=== PATIENT | male | born 1990 | race Caucasian/White ===

== ENCOUNTER 2022-08-29 20:45 | Emergency (ER) | payer OTHER, SELFPAY ==
[2022-08-29 20:49] VITALS: BP 140/90; PULSE 88; RESP 20; TEMP 36.2; O2SAT 96
--- NOTE | 2022-08-29 20:51 | ED.URI ---
HPI - URI/Sore Throat General Chief Complaint: Upper Respiratory Infection Stated Complaint: Sore Throat History of Present Illness HPI Narrative: This is a 31-year-old male with no significant past medical history, presenting to the emergency department complaining of mild sore throat for the past day. He denies difficulty breathing, fevers or chills. Related Data Home Medications Medication Instructions Recorded Confirmed No Home Medications 08/29/22 08/29/22 Allergies Allergy/AdvReac Type Severity Reaction Status Date / Time No Known Allergies Allergy Verified 08/29/22 20:47 Review of Systems Review of Systems: CONSTITUTIONAL: Denies fever, chills, or sweats. ENT: Sore throat denies rhinorrhea, congestion, or otalgia. CARDIOVASCULAR: Denies chest pain, palpitations, or edema. RESPIRATORY: Denies cough or dyspnea. GASTROINTESTINAL: Denies abdominal pain, nausea, vomiting, or diarrhea. NEUROLOGIC: Denies headache, numbness, dizziness, or weakness. PMFSH Social History Social History (Updated 08/29/22 @ 20:53 by Kt Villareal MD) Smoking status: Never smoker Alcohol intake: never Substance use: never Exam Narrative: GENERAL: Well-developed, well-nourished, and in no acute distress. HEAD: Normocephalic, atraumatic. EYES: PERRLA and EOMI. ENT: Nares clear, no rhinorrhea or epistaxis. Mucous membranes moist. Oropharynx with mild bilateral tonsillar erythema, without hypertrophy exudate or other lesions. NECK: Supple. Mild tender right anterior cervical adenopathy. No masses. No carotid bruits or JVD CHEST: Clear to auscultation. No respiratory distress. No wheezes rales or rhonchi HEART: Regular rate and rhythm. No murmur heard. Normal peripheral pulses. ABDOMEN: Soft, nontender, nondistended, normal active bowel sounds. EXTREMITIES: Normal range of motion. No edema. SKIN: Warm, dry, no rash. NEURO: No focal deficits. Alert and oriented x3. PSYCH: Normal mood and affect. Course Course Emergency Course: 21:37 - The patient tested negative for group A strep. Discussed management at home with NSAIDs and home therapies. Discussed return and emergency precautions including signs/symptoms of airway compromise patient voiced understanding and is comfortable with the plan. All questions answered to his satisfaction Vital Signs Vital signs: Vital Signs Temperature 97.1 F L 08/29/22 20:49 Pulse Rate 88 08/29/22 20:49 Respiratory Rate 20 08/29/22 20:49 Blood Pressure 140/90 08/29/22 20:49 Pulse Oximetry 96 08/29/22 20:49 Oxygen Delivery Room Air 08/29/22 20:49 Temperature 99 F 08/29/22 21:42 Pulse Rate 88 08/29/22 21:42 Respiratory Rate 20 08/29/22 21:42 Blood Pressure 140/89 08/29/22 21:42 Pulse Oximetry 100 08/29/22 21:42 Oxygen Delivery Room Air 08/29/22 21:42 MDM - URI/Sore Throat MDM Narrative Medical decision making narrative: Plan: Labs, reassess Differential Diagnosis Differential diagnosis: Likely upper respiratory infection, viral infection, pharyngitis and other Lab Data Labs: Lab Results 08/29/22 Range/Units 20:57 Group A Strep (PCR) Not detected (Negative) Discharge Plan Discharge Clinical Impression: Acute sore throat, Acute viral pharyngitis Patient Disposition: Home, Self-Care Condition: Stable Instructions: Antibiotic Form, Pharyngitis (ED) Additional Instructions: You were seen in the emergency department. You tested negative for strep. If you develop difficulty swallowing, difficulty breathing, or have other emergent concerns for life, limb, or eyesight, return to the emergency department. Prescriptions: No Action No Home Medications Follow-up/Referrals: UNKNOWN,DOCTOR [Primary Care Provider] - 2 Weeks Time of Disposition: 21:39
[2022-08-29 21:33] LABS: Strep Group A RT-PCR NOT DETECTED (Negative)
[2022-08-29 21:42] VITALS: BP 140/89; PULSE 88; RESP 20; TEMP 37.2; O2SAT 100
== END 2022-08-29 21:43 | disposition home or self-care (01) ==
PROVIDERS: Emergency Provider Preventive Medicine Aerospace Medicine
DX: J02.8 Acute pharyngitis due to other specified organisms (principal)
CPT/HCPCS: 87651; 99283

== ENCOUNTER 2022-08-31 17:39 | Emergency (ER) | payer OTHER, SELFPAY ==
[2022-08-31 17:49] VITALS: BP 157/87; PULSE 67; RESP 16; TEMP 36.2; O2SAT 97
--- NOTE | 2022-08-31 17:56 | ED.URI ---
HPI - URI/Sore Throat General Chief Complaint: Upper Respiratory Infection Stated Complaint: Sore Throat Time Seen by Provider: 08/31/22 18:00 Source: patient and RN notes reviewed Mode of arrival: ambulatory Limitations: no limitations History of Present Illness HPI Narrative: 31-year-old male presents with concern for 4 day history of sore throat, ear pain, general malaise. Denies known sick contacts. He has not taken any medications for his symptoms. MD elicited complaint: sore throat Related Data Allergies Allergy/AdvReac Type Severity Reaction Status Date / Time No Known Allergies Allergy Verified 08/31/22 18:06 Review of Systems Review of Systems: CONSTITUTIONAL: Reports malaise. Denies chills, sweats, or fever. EYES: Denies visual changes, redness, or discharge. ENT: Denies rhinorrhea, congestion, sinus pain. Reports otalgia and sore throat. CARDIOVASCULAR: Denies chest pain, palpitations, or edema. RESPIRATORY: Denies cough. Denies dyspnea. GASTROINTESTINAL: Denies abdominal pain, nausea, vomiting, diarrhea SKIN: Denies rash or itching. MUSCULOSKELETAL: Denies myalgia. NEUROLOGIC: Denies headache. All systems reviewed & are unremarkable except as noted in HPI and below PMFSH Social History Social History (Updated 08/29/22 @ 20:53 by Kt Villareal MD) Smoking status: Never smoker Alcohol intake: never Substance use: never Comments At time of signature, agree with nursing past medical, surgical, social and family history. There is no relevant family history pertinent to the presenting complaint Exam Narrative: GENERAL: Well-appearing, well-nourished, and in no acute distress. HEAD: Normocephalic EYES: PERRLA, conjunctivae clear ENT: Nares clear, no discharge. Mucous membranes moist. TM pearly beverly with dull light reflex bilaterally; no tragal tenderness. Oropharynx erythematous without lesions. Tonsils not enlarged and without exudate, no drooling, no hoarseness, no trismus, uvula midline. NECK: Supple. No lymphadenopathy CHEST: Clear to auscultation, breath sounds equal. No wheezing, rhonchi, rales, or stridor. No respiratory distress, speaks in full sentences. HEART: Regular rate and rhythm. No murmur heard. SKIN: Warm, dry, no rash. NEURO: Alert and oriented x3. PSYCH: Normal mood and affect Course Course Emergency Course: Patient is aware of diagnosis, understands and agrees to treatment plan. Anticipatory guidance given. Patient agrees to follow-up as directed and is aware of reasons to seek care at the emergency department. Portions of this record may have been created with voice recognition software Level of Care: Express Care Visit Vital Signs Vital signs: Vital Signs Temperature 97.2 F L 08/31/22 17:49 Pulse Rate 67 08/31/22 17:49 Respiratory Rate 16 08/31/22 17:49 Blood Pressure 157/87 H 08/31/22 17:49 Pulse Oximetry 97 08/31/22 17:49 Oxygen Delivery Room Air 08/31/22 17:49 Temperature 97.2 F L 08/31/22 17:49 Pulse Rate 67 08/31/22 17:49 Respiratory Rate 16 08/31/22 17:49 Blood Pressure 157/87 H 08/31/22 17:49 Pulse Oximetry 97 08/31/22 17:49 Oxygen Delivery Room Air 08/31/22 17:49 Reviewed. MDM - URI/Sore Throat MDM Narrative Medical decision making narrative: Differential diagnosis considered: Byrd virus, strep pharyngitis, allergic rhinitis, upper respiratory tract infection, sinusitis, rhinosinusitis, nasopharyngitis. viral pharyngitis, otitis media, otitis externa, pneumonia, bronchitis, viral cough syndrome, viral syndrome, and influenza. Exam findings show no acute concerns or changes; patient is non-toxic appearing and is in no distress. Patient is appropriate for outpatient treatment and follow-up. Lab Data Attestation: I reviewed the patient's lab results. Critical Care Time Critical Care Time Critical Care Time: No Discharge Plan Discharge Clinical Impression: Acute viral pharyngitis Patient Disposit
== END 2022-08-31 18:35 | disposition home or self-care (01) ==
PROVIDERS: Emergency Provider Nurse Practitioner; PCP Nurse Practitioner Family
DX: J02.9 Acute pharyngitis, unspecified (principal)
CPT/HCPCS: 87081; 87880; 99213; G0463

== ENCOUNTER 2023-09-13 08:16 | Emergency (ER) | payer OTHER, SELFPAY ==
[2023-09-13 08:25] VITALS: BP 153/88; PULSE 64; RESP 16; TEMP 36.6; O2SAT 99
--- NOTE | 2023-09-13 08:28 | ED.GENADULT ---
HPI - General Adult General Chief complaint: Upper Respiratory Infection Stated complaint: Congestion/Ear Pain Source: patient, RN notes reviewed and old records reviewed Mode of arrival: ambulatory Limitations: no limitations History of Present Illness HPI narrative: 32-year-old male patient presents to [facility] with complaints productive cough, sinus congestion, fatigue this started Sunday. Patient taking [id number] medications with little relief. Patient denies fever, myalgia, sore throat, nausea vomiting, chest pain, shortness of breath. Related Data Allergies Allergy/AdvReac Type Severity Reaction Status Date / Time No Known Allergies Allergy Verified 08/31/22 18:06 Review of Systems Constitutional: Constitutional: Reports no additional constitutional complaints, Denies body ache(s), Denies chills, Reports fatigue, Denies fever(s) and Denies headache(s) Eyes: Eyes: Reports no additional eye complaints and Denies blurry vision ENT: Reports system reviewed and no additional complaints, except as documented, Denies vertigo, Denies dizziness, Denies ear discharge, Denies otalgia, Denies facial pain, Denies headache(s), Reports nasal congestion, Reports nasal discharge, Denies sinus pain, Reports sinus pressure and Denies sore throat Cardiovascular: Cardiovascular: Reports no additional cardiovascular complaints, Denies chest pain, Denies chest pain at rest, Denies rapid heart rate and Denies dyspnea Respiratory: Respiratory: Reports no additional respiratory complaints, Reports chest congestion, Reports cough, Denies pain on inspiration, Denies pain with cough and Denies dyspnea Gastrointestinal: Gastrointestinal: Denies abdominal pain, Denies diarrhea, Denies nausea and Denies vomiting Integumentary/Breasts: Skin/Breast: Denies rash Neurologic: Reports system reviewed and no additional complaints, except as documented, Denies vertigo, Denies dizziness and Denies headache(s) Endocrine: Endocrine: Denies fatigue PMFSH Social History Social History Smoking status: Never smoker Alcohol intake: never Substance use: never Comments At the time of my signature, I reviewed and agree with the nursing past medical, surgical, social, and family history. There is no relevant family history pertinent to the patient complaint. Exam Const: General: cooperative, healthy appearing, no acute distress and well nourished Nutritional Appearance: well nourished Orientation/consciousness: patient oriented x3 Limitations: no limitations HENMT: Head: normal to inspection and normocephalic Ears: external ears normal, EAC's normal, mastoids normal and TM abnormal wth effusion serous Face/Nose/Sinus: Normal nasal mucous membranes and turbinates present and normal facial exam Face and sinus: normal facial exam, sinuses nontender, no erythema and no edema Mouth: Yes Normal oral and palatal mucosa present, Yes oropharynx normal and Yes moist mucous membranes Throat: posterior oropharynx normal, tonsils normal, uvula midline and no uvular edema Eyes: General: appearance normal, both eyes and all related structures Sclera: sclerae normal Pupils: Equal, round and reactive pupils present Resp: Effort & Inspection: normal respiratory effort, able to speak in complete sentences, no audible wheezes, no cough, no respiratory distress and no retractions Auscultation: clear to auscultation bilaterally, no crackles, no rales, no rhonchi and no wheezes Cardio: Rate: regular rate Rhythm: regular rhythm Skin: General skin exam: normal color and no rashes or lesions noted Neuro: General: patient oriented x3 Cranial nerves: Yes Equal, round and reactive pupils present Psych: Appearance: grossly normal Mental Status: mental status grossly normal Speech and movement: Normal speech and movement present Affect: normal affect Course Course Emergency Course: Patient is aware of di
== END 2023-09-13 08:45 | disposition home or self-care (01) ==
PROVIDERS: Emergency Provider Registered Nurse; PCP Nurse Practitioner Family
DX: J06.9 Acute upper respiratory infection, unspecified (principal)
CPT/HCPCS: 99213; G0463

== ENCOUNTER 2024-07-16 08:22 | Emergency (ER) | payer OTHER, SELFPAY ==
[2024-07-16 08:26] VITALS: BP 151/89; PULSE 60; RESP 16; TEMP 36.4; O2SAT 98
--- NOTE | 2024-07-16 08:58 | ED.EAR ---
HPI - Ear Problem General Chief complaint: Ear Stated complaint: Ear Pain Source: patient Mode of arrival: ambulatory Limitations: no limitations History of Present Illness HPI Narrative: Patient presents for evaluation of right ear pain. Symptom onset this morning. He has mild muffled hearing on the right side. Denies any tinnitus or drainage from the ear. No fever, chills, nausea, vomiting, sore throat, cough, shortness of breath. No recent sick contacts to his knowledge. He is not taking any medication to assist with the symptoms. He does not smoke. Related Data Allergies Allergy/AdvReac Type Severity Reaction Status Date / Time No Known Allergies Allergy Verified 07/16/24 08:45 Review of Systems Review of Systems: CONSTITUTIONAL: Denies fever, chills, or sweats. EYES: Denies visual changes, redness, or discharge. ENT: Reports right ear pain. Denies rhinorrhea, congestion, or sore throat CARDIOVASCULAR: Denies chest pain, palpitations, or edema. RESPIRATORY: Denies cough or dyspnea. GASTROINTESTINAL: Denies abdominal pain, nausea, vomiting, or diarrhea. GENITOURINARY: Denies dysuria or hematuria. SKIN: Denies rash or itching. MUSCULOSKELETAL: Denies back pain, joint pain, or myalgia. NEUROLOGIC: Denies headache, numbness, dizziness, or weakness. PSYCHIATRIC: Denies anxiety or depression. [facility] Past Medical History Medical History No pertinent past medical history Surgical History Surgical History No pertinent past surgical history Family History Family History Mother Family history non-contributory Social History Social History Smoking status: Never smoker Alcohol intake: never Substance use: never Living arrangements: with family Gender identity (if verbalized by the patient): Male Exam Narrative: GENERAL: Well-appearing, well-nourished, and in no acute distress. HEAD: Normocephalic, atraumatic. EYES: PERRLA and EOMI. ENT: Nares clear, no rhinorrhea or epistaxis. Mucous membranes moist. Oropharynx without tonsillar hypertrophy exudate or other lesions. Right TM is erythematous and bulging NECK: Supple. No adenopathy or masses. No carotid bruits or JVD CHEST: Clear to auscultation. No respiratory distress. No wheezes rales or rhonchi HEART: Regular rate and rhythm. No murmur heard. Normal peripheral pulses. ABDOMEN: Soft, nontender, nondistended, normal active bowel sounds. EXTREMITIES: Normal range of motion. No edema. SKIN: Warm, dry, no rash. NEURO: No focal deficits. Alert and oriented x3. PSYCH: Normal mood and affect. Course Course Emergency Course: This is a 33-year-old male who presented for evaluation of right-sided ear pain. He has evidence of otitis media on exam. Will tx with augmentin. Ibuprofen for pain. Follow up with primary provider. Go to the ER for worsening symptoms. Pt in agreement with plan of care. Level of Care: Express Care Visit Vital Signs Vital signs: Vital Signs Temperature 36.4 C 07/16/24 08:26 Pulse Rate 60 07/16/24 08:26 Respiratory Rate 16 07/16/24 08:26 Blood Pressure 151/89 H 07/16/24 08:26 Pulse Oximetry 98 07/16/24 08:26 Oxygen Delivery Room Air 07/16/24 08:26 Temperature 36.4 C 07/16/24 08:26 Pulse Rate 60 07/16/24 08:26 Respiratory Rate 16 07/16/24 08:26 Blood Pressure 151/89 H 07/16/24 08:26 Pulse Oximetry 98 07/16/24 08:26 Oxygen Delivery Room Air 07/16/24 08:26 Medical Decision Making Vital Signs Vital Signs: Vital Signs Temperature 36.4 C 07/16/24 08:26 Pulse Rate 60 07/16/24 08:26 Respiratory Rate 16 07/16/24 08:26 Blood Pressure 151/89 H 07/16/24 08:26 Pulse Oximetry 98 07/16/24 08:26 Oxygen Delivery Room Air 07/16/24 08:26 Temperature 36.4 C 07/16/24 08:26 Pulse Rate 60 07/16/24 08:26 Respiratory Rate 16 07/16/24 08:26 Blood Pressure 151/89 H 07/16/24 08:26 Pulse Oximetry 98 07/16/24 08:26 Oxygen Delivery Room Air 07/16/24 08:26 Discharge Plan Discharge Clinical Impression: Otitis media Patient Disposition: Home, Self-Care Condition: Stable Instructions: Antibiotic Form, Ear Infection (ED) Patient Language: Marshallese Prescriptions: New amoxicillin-pot clavulanate 875-125 mg tablet 1 tablet PO Q12H Qty: 20 0RF Follow-up/Referrals: [place],Jenise Multani APN [Primary Care Provider] - Time of Disposition: 08:57
== END 2024-07-16 09:00 | disposition home or self-care (01) ==
PROVIDERS: Emergency Provider Nurse Practitioner; PCP Nurse Practitioner Family
DX: H66.91 Otitis media, unspecified, right ear (principal)
CPT/HCPCS: 99213; G0463